=== PATIENT | female | born 1975 | race African-American/Black ===

== ENCOUNTER 2017-01-03 11:42 | Emergency (ER) | payer OTHER ==
[~2017-01-03] VITALS: Ht 157.5 cm; Wt 91.0 kg
[2017-01-03 17:06] VITALS: BP 143/89
== END 2017-01-03 17:09 | disposition home or self-care (01) ==
LOC: ER 11:42
DX: H10.023 Other mucopurulent conjunctivitis, bilateral (principal); Z98.890 Other specified postprocedural states
CPT/HCPCS: 99283; Z7610

== ENCOUNTER 2017-04-15 16:58 | Emergency (ER) | payer OTHER ==
[~2017-04-15] VITALS: Ht 160 cm; Wt 91.0 kg
[2017-04-15 17:19] VITALS: BP 126/81
== END 2017-04-15 22:09 | disposition left against medical advice (07) ==
LOC: ER 17:36
DX: Z53.21 Procedure and treatment not carried out due to patient leaving prior to being seen by health care provider (principal)

== ENCOUNTER 2017-06-09 08:18 | Emergency (ER) | payer MEDICAID, OTHER ==
[~2017-06-09] VITALS: Ht 157.5 cm; Wt 91.0 kg
[2017-06-09] MEDS ORDERED: CEFTRIAXONE SODIUM 250 MG/VIAL IM ONE (12:15)
[2017-06-09] MEDS ORDERED: IBUPROFEN 600MG TABLET PO ONE (12:15)
[2017-06-09 12:41] VITALS: BP 131/87
== END 2017-06-09 12:42 | disposition home or self-care (01) ==
LOC: ER 08:37
DX: K08.89 Other specified disorders of teeth and supporting structures (principal); Z98.890 Other specified postprocedural states
CPT/HCPCS: 96372; 99283; J0696; Z7610